=== PATIENT | female | born 1980 | race Caucasian/White ===

== ENCOUNTER 2023-05-23 09:12 | Emergency (ER) | payer SELFPAY ==
[~2023-05-23] VITALS: Ht 170.2 cm; Wt 58.0 kg
[2023-05-23 09:19] VITALS: BP 115/75; PULSE 101; RESP 20; TEMP 98.4; O2SAT 100
[2023-05-23 09:56] LABS: HEMATOCRIT. 41.9 % (36.0-48.0); HEMOGLOBIN. 14.4 g/dL (12.0-16.0); MEAN CORPUSCULAR HEMOGLOBIN 33.2 pg (28.0-32.0); MEAN CORPUSCULAR HGB CONC 34.3 g/dL (31.0-37.0); MEAN CORPUSCULAR VOLUME 96.8 fL (81.0-99.0); MEAN PLATELET VOLUME 7.5 fl (7.4-10.4); PLATELET 510 x1000/uL (130-400); RED BLOOD CELL COUNT 4.33 mill/uL (4.2-5.4); RED CELL DISTRIBUTION WIDTH 13.6 % (11.6-14.6); WHITE BLOOD COUNT 28.2 x1000/uL (4.5-11.0)
[2023-05-23 09:58] LABS: DIFFERENTIAL COMMENT 1
[2023-05-23 10:13] LABS: ALANINE AMINOTRANSFERASE 30 IU/L (13-61); ALBUMIN 4.3 g/dL (3.4-5.0); ASPARTATE AMINOTRANSFERASE 33 IU/L (15-37); BILIRUBIN TOTAL 0.5 mg/dL (0.1-1.0); CALCIUM 9.4 mg/dL (8.5-10.1); CARBON DIOXIDE 23 mEq/L (21-32); CHLORIDE 103 mEq/L (98-107); CREATININE 0.7 mg/dL (0.6-1.3); ETHANOL BLOOD < 10 mg/dL (-10); GLUCOSE 109 mg/dL (70-105); HCG SCREEN NEGATIVE; INDEX HEMOLYSI 1 (1-3); INDEX ICTERIC 1 (1-4); INDEX LIPEMIC 1 (1-3); POTASSIUM 3.9 mEq/L (3.5-5.1); PROTEIN TOTAL 8.5 g/dL (6.0-8.3); SODIUM 137 mEq/L (136-145); UREA NITROGEN BLOOD 17 mg/dL (7-21)
[2023-05-23 10:22] LABS: PLATELET ESTIMATE INCREASED
== END 2023-05-23 10:15 | disposition left against medical advice (07) ==
LOC: ER 09:12
DX: R11.2 Nausea with vomiting, unspecified (principal); R53.1 Weakness; R42 Dizziness and giddiness; Z98.51 Tubal ligation status; Z90.49 Acquired absence of other specified parts of digestive tract
CPT/HCPCS: 36415; 80053; 80320; 84703; 85025; 99283; G0480

== ENCOUNTER 2024-10-23 16:52 | Emergency (ER) | payer MEDICAID, OTHER ==
[~2024-10-23] VITALS: Ht 165.1 cm; Wt 65.0 kg
[2024-10-23 17:00] VITALS: BP 129/72; PULSE 92; RESP 16; TEMP 98.5; O2SAT 100
[2024-10-23] MEDS ORDERED: IBUP-2028 MT (18:36)
[2024-10-23] MEDS ORDERED: METH-653 MT (18:36)
[2024-10-23] MEDS ORDERED: TOPUD PO (18:36)
[2024-10-23] MEDS ORDERED: LIDO700A15 TP (18:36)
[2024-10-23] MEDS: HYDROCODONE/ACETAMINOPHEN 5/325MG TABLET PO ONE (19:01)
[2024-10-23] MEDS: ONDANSETRON 4MG ODT PO ONE (19:12)
== END 2024-10-23 19:46 | disposition home or self-care (01) ==
LOC: ER 16:52
DX: S22.32XA Fracture of one rib, left side, initial encounter for closed fracture (principal); S00.83XA Contusion of other part of head, initial encounter; F12.90 Cannabis use, unspecified, uncomplicated; Z90.49 Acquired absence of other specified parts of digestive tract; Z98.51 Tubal ligation status; Y08.89XA Assault by other specified means, initial encounter; Y93.89 Activity, other specified; Y92.89 Other specified places as the place of occurrence of the external cause; Y99.8 Other external cause status
CPT/HCPCS: 99284; 70450; 71101; 72100; 70486; 72125; Q0162